=== PATIENT | male | born 1990 | race Caucasian/White ===

== ENCOUNTER 2023-10-15 19:19 | Emergency (ER) | payer OTHER ==
[~2023-10-15] VITALS: Ht 188 cm; Wt 104.8 kg
[2023-10-15 22:36] VITALS: BP 110/65; PULSE 62; RESP 18; TEMP 98.5; O2SAT 96
[2023-10-16 01:43] LABS: Hepatitis B Surface Antibody Positive (Negative)
[2023-10-16 01:55] LABS: Hepatitis B Surface Antigen Negative (Negative)
== END 2023-10-15 23:02 | disposition home or self-care (01) ==
LOC: ER 19:19
DX: S60.311A Abrasion of right thumb, initial encounter (principal); Z77.21 Contact with and (suspected) exposure to potentially hazardous body fluids; W45.8XXA Other foreign body or object entering through skin, initial encounter; Y93.89 Activity, other specified; Y92.89 Other specified places as the place of occurrence of the external cause; Y99.0 Civilian activity done for income or pay
CPT/HCPCS: 36415; 86703; 86706; 86803; 87340